=== PATIENT | female | born 1990 | race Caucasian/White ===

== ENCOUNTER 2016-11-11 23:20 | Emergency (ER) | payer BC ==
[~2016-11-11] VITALS: Ht 167.6 cm; Wt 65.8 kg
--- NOTE | 2016-11-11 23:26 | NUR ---
PT IN BATHROOM
[2016-11-11] MEDS ORDERED: DROS1TAB2 PO (23:43)
[2016-11-11] MEDS ORDERED: ADAL40PE SQ (23:43)
[2016-11-11] MEDS ORDERED: HYDR2TAB13 PO (23:43)
--- NOTE | 2016-11-11 23:43 | NUR ---
PT REPORTS SHE HAS HAD KNEE PAIN SINCE BEING ATTACKED BY A [employer] AND IS GOING TO CALL HER DOCTOR NEXT WEEK TO CALL AND SCHEDULE SURGERY
[2016-11-11] MEDS ORDERED: REGLAN IM STA (23:59)
--- NOTE | 2016-11-11 23:59 | ER.PDOC ---
General Chief Complaint: Headache Stated Complaint: MIGRAINE Time seen by MD: 23:55 Source: patient, family Exam Limitations: no limitations History of Present Illness Initial Comments 26 year old white male with history of Crohn's disease, psoriasis, and migraine headache comes in with recurrence of headache. Started around 6 hours ago as left sided headache with associated with nausea. No vomiting. Last migraine attack was 2 years ago. Patient is visiting from [place]. Timing/Duration: 4-6 hours Severity/Quality: severe, throbbing Radiation: no radiation Associated Symptoms: nausea/vomiting Allergies: Coded Allergies: codeine (Verified Allergy, Unknown, 11/11/16) hydrocodone (Verified Allergy, Unknown, 11/11/16) tramadol (Verified Allergy, Unknown, 11/11/16) Home Meds Reported Medications Adalimumab (HUMIRA) 40 Mg/0.8 Ml Pen.ij.kit, 40 MG SQ .Q2WKS 11/11/16 Drospir/Eth Estra/Levomefol Ca (BEYAZ 28 TABLET) 1 Each Tablet, 1 EACH PO DAILY , TABLET 11/11/16 Hydromorphone Hcl (DILAUDID) 2 Mg Tablet, 2 MG PO PRN Y for PAIN, TABLET 11/11/16 Vital Signs First Vital Signs Date Time Temp Pulse Resp B/P (MAP) Pulse Ox O2 Delivery O2 Flow Rate FiO2 11/11/16 23:31 97.9 96 16 99 11/11/16 23:39 137/92 (107) Last Vital Signs Date Time Temp Pulse Resp B/P (MAP) Pulse Ox O2 Delivery O2 Flow Rate FiO2 11/11/16 23:39 97.9 96 16 137/92 (107) 99 Past Medical History Medical History: other (Crohn's disease. migraine, psoriasis) Surgical History: knee, tonsillectomy Social History Smoking: non-smoker Alcohol Use: none Drug Use: none Constitutional: see HPI EENTM: see HPI Respiratory: denies no symptoms reported, denies see HPI, denies cough, denies orthopnea, denies shortness of breath, denies SOB with exertion, denies SOB at rest, denies stridor, denies wheezing, denies other Cardiovascular: denies no symptoms reported, denies see HPI, denies chest pain , denies edema, denies irregular heart rate, denies lightheadedness, denies palpitations, denies syncope, denies other Gastrointestinal: nausea Genitourinary: denies no symptoms reported, denies see HPI, denies burning, denies dysuria, denies discharge, denies frequency, denies flank pain, denies hematuria, denies incontinence, denies pain, denies urgency, denies other Musculoskeletal: denies no symptoms reported, denies see HPI, denies back pain , denies gout, denies joint pain, denies joint swelling, denies muscle pain, denies muscle stiffness, denies neck pain, denies other Skin: denies no symptoms reported, denies see HPI, denies change in color, denies change in hair/nails, denies dryness, denies lesions, denies lumps, denies rash, denies other Psychiatric/Neurological: denies no symptoms reported, denies see HPI, denies anxiety, denies depressed, denies emotional problems, denies headache, denies numbness, denies paresthesia, denies pre-existing deficit, denies seizure, denies tingling, denies tremors, denies weakness, denies other Endocrine: denies no symptoms reported, denies see HPI, denies excessive sweating, denies flushing, denies intolerance to cold, denies intolerance to heat, denies increased hunger, denies increased thrist, denies increased urine, denies unexplained weight gain, denies unexplaned weight loss, denies other Physical Exam General Appearance: No Apparent Distress, WD/WN HEENT: PERRL/EOMI, Normal ENT Inspection, TMs Normal, Pharynx Normal Neck: Non-Tender, Full Range of Motion, Supple, Normal Inspection Respiratory: chest non-tender, lungs clear, normal breath sounds, no respiratory distress, no accessory muscle use Cardiovascular: Normal Peripheral Pulses, Regular Rate, Rhythm, No Edema, No Gallop, No JVD, No Murmur Gastrointestinal: Normal Bowel Sounds, Non Tender, Soft Pelvic: Normal External Exam, Normal Adnexa, No Cerv. 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 Ready to go home Course Blood Pressure Systolic: 137 Blood Pressure Diastolic: 92 Blood Pressure Mean: 107 Departure Time of Disposition: 00:51 Disposition: 01 HOME, SELF-CARE Impression: Primary Impression: Headache Condition: Improved Referrals: PCP,UNKNOWN (PCP) PRIMARY CARE PROVIDER Additional Instructions: Follow up PCP RTER prn Continue home meds MIGUEL PEÑA MD Nov 11, 2016 23:59
[2016-11-12] MEDS ORDERED: TORADOL IM ONE
[2016-11-12] MEDS ORDERED: TORADOL ONE (00:05)
--- NOTE | 2016-11-12 00:45 | NUR ---
EMESIS PT REPORTED THAT SHE THREW UP AND NOW FEELS BETTER. STATES THAT IS WHAT HAPPENS WITH HER AND DECLINES WANTING ANY NAUSEA MEDICINE
--- NOTE | 2016-11-12 01:06 | NUR ---
DISCHARGE DISCHARGE INSTRUCTIONS DISCUSSED. PT AND MOTHER VERBALIZED UNDERSTANDING. ENCOURAGED TO RETURN FOR ANY CONCERNS.
[2016-11-12 01:09] VITALS: BP 148/74
== END 2016-11-12 01:06 | disposition home or self-care (01) ==
LOC: ER 23:20
DX: G43.909 Migraine, unspecified, not intractable, without status migrainosus (principal); K50.90 Crohn's disease, unspecified, without complications; Z79.899 Other long term (current) drug therapy; Z88.5 Allergy status to narcotic agent; Z88.8 Allergy status to other drugs, medicaments and biological substances
CPT/HCPCS: 96372 ×2; 99284; J1885; J2765